=== PATIENT | male | born 1945 | race Caucasian/White ===

== ENCOUNTER 2018-07-15 16:21 | Inpatient (IN) | payer OTHER ==
[~2018-07-15] VITALS: Ht 182.9 cm; Wt 92.8 kg
[2018-07-15] MEDS ORDERED: METOPROLOL TARTRATE 1MG/1ML-5ML VIAL IV ONE ×2 (16:22→16:30)
[2018-07-15] MEDS ORDERED: AMIODARONE HCL 150 MG in D5W 5% 100 ML IV ONE (16:30)
[2018-07-15] MEDS ORDERED: METOPROLOL SUCCINATE XL 50 MG TAB PO ONE (16:30)
[2018-07-15] MEDS ORDERED: AMIODARONE HCL 900 MG in DEXTROSE 500 ML IV SCH ×3 (16:37→22:37)
[2018-07-15 16:51] LABS: Basophils # (auto) 0.1 uL; Basophils % (auto) 0.7 % (0.0-2.0); Eosinophils # (auto) 0.1 uL; Eosinophils % (auto) 0.9 % (0.0-7.0); Hematocrit 46.6 % (41.0-53.0); Hemoglobin 15.4 g/dL (13.5-17.5); Lymphocytes # (auto) 1.8 uL; Lymphocytes % (auto) 20.8 % (10.0-50.0); Mean Corpuscular Hemoglobin 30.6 pg (28.0-32.0); Mean Corpuscular Hgb Conc. 33.1 g/dL (32.0-36.0); Mean Corpuscular Volume 92.4 fL (80.0-100.0); Monocytes # (auto) 0.5 uL; Monocytes % (auto) 6.1 % (0.0-12.0); Neutrophils # (auto) 6.1 uL; Neutrophils % (auto) 71.5 % (37.0-80.0); Nucleated Red Blood Cells % 0.1 %; Platelet Count (auto) 208 10^3/uL (140-450); Red Blood Cells 5.04 10^6/uL (4.5-5.90); Red Cell Distribution Width 15.2 % (11.8-14.3); White Blood Cell 8.5 10^3/uL (4.4-10.8)
[2018-07-15] MEDS ORDERED: ONDANSETRON HCL 4 MG/2 ML VIAL IV ONE (17:00)
[2018-07-15] MEDS ORDERED: FUROSEMIDE 40 MG/4 ML VIAL IV ONE (17:00)
[2018-07-15] MEDS ORDERED: MORPHINE SULF INJ 2 MG/ML SYRINGE 1ML IV ONE (17:00)
[2018-07-15] MEDS ORDERED: FUROSEMIDE 40 MG/4 ML VIAL ONE (17:02)
[2018-07-15 17:07] LABS: INR 1.07 (0.9-1.15); Partial Thromboplastin Time 26.6 sec (23.78-33.04); Prothrombin Time 11.4 sec (9.27-12.13)
[2018-07-15 17:13] LABS: Albumin 3.3 g/dL (3.4-5.0); BUN/Creatinine Ratio 12.4; Calcium 8.3 mg/dL (8.5-10.1); Magnesium 2.2 mg/dL (1.6-2.6); Potassium 4.5 mmol/L (3.5-5.1)
[2018-07-15 17:18] LABS: Bilirubin, Total 1.6 mg/dL (0.2-1.0); Total Protein 6.8 g/dL (6.4-8.2)
[2018-07-15] MEDS: FUROSEMIDE 20 MG/2 ML VIAL IV SCH (18:50)
[2018-07-15] MEDS ORDERED: ASPirin 81 mg TAB PO ONE (19:15)
[2018-07-15] MEDS: NITROGLYCERIN 2% OINT 1GM PKG TD SCH (20:06)
[2018-07-15 20:38] LABS: Urine Bacteria NONE SEEN /hpf (None Seen); Urine Blood Negative /uL (Negative); Urine Specific Gravity 1.014 (1.001-1.035); Urine WBC 3 /hpf (0 - 3)
[2018-07-15] MEDS ORDERED: ASPirin 81 mg TAB PO SCH (22:00)
[2018-07-15] MEDS: POTASSIUM CHL 10 Meq TABLET PO SCH (22:29)
[2018-07-16] MEDS ORDERED: MORPHINE SULF INJ 2 MG/ML SYRINGE 1ML IV PRN
[2018-07-16] MEDS ORDERED: MORPHINE SULF INJ 2 MG/ML SYRINGE 1ML IM SCH
[2018-07-16] MEDS ORDERED: NTG 0.1MG/HR TOPICAL PATCH TD SCH
[2018-07-16] MEDS: AMIODARONE HCL 900 MG in DEXTROSE 500 ML IV SCH ×2 (01:00→16:45)
[2018-07-16] MEDS: NITROGLYCERIN 2% OINT 1GM PKG TD SCH ×4 (01:10→17:36)
[2018-07-16 01:52] VITALS: BP 122/85
[2018-07-16] MEDS ORDERED: FURO40TA4 PO (02:16)
[2018-07-16] MEDS ORDERED: POTA10TA51 PO (02:16)
[2018-07-16 04:00] VITALS: BP 122/78
[2018-07-16] MEDS: FUROSEMIDE 20 MG/2 ML VIAL IV SCH (05:22)
[2018-07-16 08:00] VITALS: BP 117/80
[2018-07-16] MEDS: POTASSIUM CHL 10 Meq TABLET PO SCH (10:00)
[2018-07-16] MEDS: ASPirin 81 mg TAB PO SCH (10:00)
[2018-07-16 10:07] LABS: Basophils # (auto) 0.1 uL; Basophils % (auto) 0.7 % (0.0-2.0); Eosinophils # (auto) 0 uL; Eosinophils % (auto) 0.1 % (0.0-7.0); Hematocrit 47.2 % (41.0-53.0); Hemoglobin 15.4 g/dL (13.5-17.5); Lymphocytes # (auto) 1.7 uL; Lymphocytes % (auto) 12.7 % (10.0-50.0); Mean Corpuscular Hemoglobin 29.9 pg (28.0-32.0); Mean Corpuscular Hgb Conc. 32.6 g/dL (32.0-36.0); Mean Corpuscular Volume 91.6 fL (80.0-100.0); Monocytes # (auto) 1.2 uL; Monocytes % (auto) 8.8 % (0.0-12.0); Neutrophils # (auto) 10.2 uL; Neutrophils % (auto) 77.7 % (37.0-80.0); Nucleated Red Blood Cells % 0.1 %; Platelet Count (auto) 201 10^3/uL (140-450); Red Blood Cells 5.15 10^6/uL (4.5-5.90); Red Cell Distribution Width 15.1 % (11.8-14.3); White Blood Cell 13.1 10^3/uL (4.4-10.8)
[2018-07-16] MEDS ORDERED: SOD CHL 0.45% 500 ML IV ONE (10:15)
[2018-07-16 10:48] LABS: Albumin 3.5 g/dL (3.4-5.0); BUN/Creatinine Ratio 10.2; Bilirubin, Total 2.9 mg/dL (0.2-1.0); Calcium 8.3 mg/dL (8.5-10.1); Total Protein 7.1 g/dL (6.4-8.2)
[2018-07-16 10:51] LABS: Potassium 5.8 mmol/L (3.5-5.1)
[2018-07-16 12:00] VITALS: BP 118/76
[2018-07-16] MEDS: HEPARIN SODIUM (PORCINE) 5000 UNITS/ML 1ML VIAL SC SCH ×2 (12:15→22:00)
[2018-07-16] MEDS ORDERED: InsuLIN REG 1unit/0.01ml Soln (100units/ml) IV ONE (12:30)
[2018-07-16] MEDS ORDERED: DEXTROSE (50%) 50ML SYRG IV ONE (12:30)
[2018-07-16] MEDS ORDERED: CALCIUM GLUC 4.65meq/50ml D5AE 50 ML IV ONE (12:30)
[2018-07-16] MEDS ORDERED: HEPARIN SODIUM (PORCINE) 5000 UNITS/ML 1ML VIAL ONE (12:43)
[2018-07-16 12:51] LABS: Creatinine, Urine 170 mg/dL (30.0-125.0)
[2018-07-16 16:00] VITALS: BP 120/83
[2018-07-16 18:16] LABS: Albumin 3.4 g/dL (3.4-5.0); BUN/Creatinine Ratio 11.6; Bilirubin, Total 3.1 mg/dL (0.2-1.0); Calcium 8.3 mg/dL (8.5-10.1); Potassium 5.4 mmol/L (3.5-5.1)
[2018-07-16 20:16] VITALS: BP 128/86
[2018-07-16] MEDS: ATORVASTATIN 20 MG TAB PO SCH (22:00)
[2018-07-16 22:44] LABS: Sodium Urine 21 mmol/L (40-220)
[2018-07-17] VITALS: BP_SYST 123; BP_SYST 126; BP_DIAS 73; BP_DIAS 87
[2018-07-17 04:00] VITALS: BP 131/84
[2018-07-17 05:51] LABS: Basophils # (auto) 0 uL; Basophils % (auto) 0.3 % (0.0-2.0); Eosinophils # (auto) 0 uL; Eosinophils % (auto) 0.1 % (0.0-7.0); Hematocrit 46.8 % (41.0-53.0); Hemoglobin 15.8 g/dL (13.5-17.5); Lymphocytes # (auto) 2.4 uL; Lymphocytes % (auto) 18.2 % (10.0-50.0); Mean Corpuscular Hgb Conc. 33.8 g/dL (32.0-36.0); Mean Corpuscular Volume 91.7 fL (80.0-100.0); Monocytes # (auto) 1.2 uL; Neutrophils # (auto) 9.5 uL; Neutrophils % (auto) 72.4 % (37.0-80.0); Nucleated Red Blood Cells % 0.2 %; Platelet Count (auto) 158 10^3/uL (140-450); Red Blood Cells 5.11 10^6/uL (4.5-5.90); White Blood Cell 13.1 10^3/uL (4.4-10.8)
[2018-07-17] MEDS: NITROGLYCERIN 2% OINT 1GM PKG TD SCH ×3 (06:03→14:02)
[2018-07-17 06:20] LABS: Albumin 3.5 g/dL (3.4-5.0); BUN/Creatinine Ratio 15.4; Bilirubin, Total 2.5 mg/dL (0.2-1.0); Calcium 8.5 mg/dL (8.5-10.1); Potassium 4.9 mmol/L (3.5-5.1); Total Protein 6.9 g/dL (6.4-8.2)
[2018-07-17 11:50] VITALS: BP 113/78
[2018-07-17] MEDS: ASPirin 81 mg TAB PO SCH (12:55)
[2018-07-17] MEDS: HEPARIN SODIUM (PORCINE) 5000 UNITS/ML 1ML VIAL SC SCH ×2 (14:10→21:31)
[2018-07-17 15:50] VITALS: BP 125/81
[2018-07-17] MEDS ORDERED: HYDROcodone-ACET 5/325MG TAB PO PRN (17:45)
[2018-07-17 19:50] VITALS: BP 136/81
[2018-07-17] MEDS: AMIODARONE HCL 900 MG in DEXTROSE 500 ML IV SCH (21:30)
[2018-07-17] MEDS: ATORVASTATIN 20 MG TAB PO SCH (21:31)
[2018-07-18] VITALS: BP 127/77
[2018-07-18 04:00] VITALS: BP 129/77
[2018-07-18] MEDS: NITROGLYCERIN 2% OINT 1GM PKG TD SCH ×4 (06:00→18:00)
[2018-07-18 06:15] LABS: Albumin 3.2 g/dL (3.4-5.0); BUN/Creatinine Ratio 19.4; Bilirubin, Total 2.4 mg/dL (0.2-1.0); Calcium 8.3 mg/dL (8.5-10.1); Potassium 4.4 mmol/L (3.5-5.1); Total Protein 6.5 g/dL (6.4-8.2)
[2018-07-18 06:17] LABS: Basophils # (auto) 0 uL; Basophils % (auto) 0.4 % (0.0-2.0); Eosinophils # (auto) 0 uL; Eosinophils % (auto) 0.2 % (0.0-7.0); Hematocrit 44.9 % (41.0-53.0); Lymphocytes # (auto) 1.5 uL; Mean Corpuscular Hemoglobin 30.5 pg (28.0-32.0); Mean Corpuscular Hgb Conc. 33.4 g/dL (32.0-36.0); Mean Corpuscular Volume 91.4 fL (80.0-100.0); Monocytes # (auto) 0.9 uL; Monocytes % (auto) 7.9 % (0.0-12.0); Neutrophils # (auto) 9.3 uL; Neutrophils % (auto) 78.5 % (37.0-80.0); Nucleated Red Blood Cells % 0.2 %; Platelet Count (auto) 147 10^3/uL (140-450); Red Blood Cells 4.91 10^6/uL (4.5-5.90); White Blood Cell 11.8 10^3/uL (4.4-10.8)
[2018-07-18] MEDS: ASPirin 81 mg TAB PO SCH (10:05)
[2018-07-18] MEDS: HEPARIN SODIUM (PORCINE) 5000 UNITS/ML 1ML VIAL SC SCH ×2 (10:08→21:56)
[2018-07-18] MEDS ORDERED: FUROSEMIDE 40 MG/4 ML VIAL IV ONE (11:00)
[2018-07-18 11:56] VITALS: BP 125/74
[2018-07-18] MEDS: AMIODARONE HCL 200 MG TAB PO SCH ×2 (12:25→21:57)
[2018-07-18] MEDS: METOPROLOL SUCCINATE XL 50 MG TAB PO SCH (12:26)
[2018-07-18] MEDS: IPRATROPIUM BROM 0.5 MG/2.5ML INH SOL NEB SCH ×3 (14:43→22:47)
[2018-07-18] MEDS: ALBUTEROL SULF 2.5 MG/0.5ML(0.5%) NEB SOLN NEB SCH ×3 (14:43→22:47)
[2018-07-18 15:07] VITALS: BP 125/74
[2018-07-18 15:50] VITALS: BP 119/61
[2018-07-18] MEDS: BUDESONIDE (INHALATION) 0.5 MG/2 ML NEB NEB SCH (18:33)
[2018-07-18] MEDS: ATORVASTATIN 20 MG TAB PO SCH (21:37)
[2018-07-18 22:00] VITALS: BP 140/74
[2018-07-18] MEDS ORDERED: ACETYLCYSTEINE ORAL for CIN 20%(200MG/ML) 4ML PO SCH (22:00)
[2018-07-18] MEDS ORDERED: ACETYLCYSTEINE 20%(200MG/ML) SOL 4ML ONE (22:23)
[2018-07-19] MEDS: NITROGLYCERIN 2% OINT 1GM PKG TD SCH ×2 (00:26→06:12)
[2018-07-19] MEDS: ALBUTEROL SULF 2.5 MG/0.5ML(0.5%) NEB SOLN NEB SCH ×6 (02:09→21:47)
[2018-07-19] MEDS: IPRATROPIUM BROM 0.5 MG/2.5ML INH SOL NEB SCH ×6 (02:09→21:47)
[2018-07-19 05:01] VITALS: BP 134/71
[2018-07-19 05:25] LABS: Basophils # (auto) 0 uL; Basophils % (auto) 0.5 % (0.0-2.0); Eosinophils # (auto) 0 uL; Eosinophils % (auto) 0.4 % (0.0-7.0); Hematocrit 44.1 % (41.0-53.0); Hemoglobin 14.9 g/dL (13.5-17.5); Lymphocytes # (auto) 1.3 uL; Lymphocytes % (auto) 14.1 % (10.0-50.0); Mean Corpuscular Hemoglobin 30.8 pg (28.0-32.0); Mean Corpuscular Hgb Conc. 33.8 g/dL (32.0-36.0); Mean Corpuscular Volume 91.2 fL (80.0-100.0); Monocytes # (auto) 0.7 uL; Monocytes % (auto) 7.9 % (0.0-12.0); Neutrophils # (auto) 6.9 uL; Neutrophils % (auto) 77.1 % (37.0-80.0); Nucleated Red Blood Cells % 0.2 %; Platelet Count (auto) 146 10^3/uL (140-450); Red Blood Cells 4.84 10^6/uL (4.5-5.90)
[2018-07-19 05:38] LABS: INR 1.21 (0.9-1.15); Partial Thromboplastin Time 25.3 sec (23.78-33.04); Prothrombin Time 12.8 sec (9.27-12.13)
[2018-07-19 05:45] LABS: BUN/Creatinine Ratio 20.3; Calcium 8.3 mg/dL (8.5-10.1); Potassium 4.2 mmol/L (3.5-5.1)
[2018-07-19 05:47] LABS: Bilirubin, Total 2.1 mg/dL (0.2-1.0); Total Protein 6.2 g/dL (6.4-8.2)
[2018-07-19 08:00] VITALS: BP 131/75
[2018-07-19] MEDS ORDERED: ADENOSINE 79 MG in GIVE UN-DILUTED 0 ML IV ONE (09:00)
[2018-07-19] MEDS: HEPARIN SODIUM (PORCINE) 5000 UNITS/ML 1ML VIAL SC SCH (10:00)
[2018-07-19] MEDS: BUDESONIDE (INHALATION) 0.5 MG/2 ML NEB NEB SCH ×2 (10:16→17:55)
[2018-07-19] MEDS: FUROSEMIDE 40 MG/4 ML VIAL IV SCH (10:36)
[2018-07-19] MEDS: AMIODARONE HCL 200 MG TAB PO SCH ×2 (10:36→21:35)
[2018-07-19] MEDS: ASPirin 81 mg TAB PO SCH (10:36)
[2018-07-19] MEDS: METOPROLOL SUCCINATE XL 50 MG TAB PO SCH (10:40)
[2018-07-19] MEDS ORDERED: SODIUM CHLORIDE 0.9% 1,000 ML IV SCH (11:30)
[2018-07-19 12:00] VITALS: BP 143/77
[2018-07-19] MEDS: ACETYLCYSTEINE ORAL for CIN 20%(200MG/ML) 4ML PO SCH ×2 (12:15→21:36)
[2018-07-19] MEDS ORDERED: LIDOCAINE 2% (LOCAL ANESTH.) PF 5ml SDV ONE (12:24)
[2018-07-19] MEDS ORDERED: IOHEXOL 350 MG/ML 100ML IJ ONE (12:25)
[2018-07-19] MEDS ORDERED: ANGIOMAX 250 MG VIAL IV ONE ×2 (13:21→14:27)
[2018-07-19] MEDS ORDERED: fentaNYL CITRATE 100 MCG/2 ML VL ONE (13:22)
[2018-07-19] MEDS ORDERED: SODIUM CHL 0.9% 50 ML ONE ×2 (13:22→14:27)
[2018-07-19] MEDS ORDERED: HEPARIN SODIUM (PORCINE) 5000 UNITS/ML 1ML VIAL ONE (13:22)
[2018-07-19] MEDS ORDERED: VERAPAMIL 2.5MG/ML INJ 2ML VIAL IV ONE ×2 (13:22→13:48)
[2018-07-19] MEDS ORDERED: MIDAZOLAM HCL 1MG/1ML-2 ML VIAL ONE (13:22)
[2018-07-19] MEDS ORDERED: ATROPINE SULF 1 MG/10ml SYR ONE (13:53)
[2018-07-19] MEDS ORDERED: EPINEPHrine HCL 1 MG/10 ML SYRG ONE (13:53)
[2018-07-19] MEDS ORDERED: IODIXANOL 320MG/ML 100ML BTL IV ONE (13:54)
[2018-07-19] MEDS ORDERED: TICAGRELOR 90 MG TAB ONE (14:34)
[2018-07-19] MEDS ORDERED: ASPirin 325 MG TAB ONE (14:34)
[2018-07-19] MEDS: SODIUM CHLORIDE 0.9% 1,000 ML IV SCH (15:45)
[2018-07-19 16:00] VITALS: BP 140/83
[2018-07-19] MEDS: TICAGRELOR 90 MG TAB PO SCH (21:34)
[2018-07-19] MEDS: ATORVASTATIN 20 MG TAB PO SCH (21:35)
[2018-07-19 22:00] VITALS: BP 141/75
[2018-07-20] MEDS: SODIUM CHLORIDE 0.9% 1,000 ML IV SCH (01:45)
[2018-07-20] MEDS: IPRATROPIUM BROM 0.5 MG/2.5ML INH SOL NEB SCH ×6 (02:00→22:00)
[2018-07-20] MEDS: ALBUTEROL SULF 2.5 MG/0.5ML(0.5%) NEB SOLN NEB SCH ×6 (02:00→22:00)
[2018-07-20 05:00] VITALS: BP 153/77
[2018-07-20 08:30] VITALS: BP 154/80
[2018-07-20] MEDS ORDERED: AMI200T PO (09:32)
[2018-07-20] MEDS ORDERED: ASPI81CH43 PO (09:32)
[2018-07-20] MEDS ORDERED: MET5XLT PO (09:32)
[2018-07-20] MEDS ORDERED: ATOR20TA50 PO (09:32)
[2018-07-20] MEDS ORDERED: CLOP75TA28 PO (09:32)
[2018-07-20] MEDS ORDERED: FURO40TA PO (09:38)
[2018-07-20 09:45] LABS: BUN/Creatinine Ratio 14.4; Calcium 8.4 mg/dL (8.5-10.1); Potassium 3.8 mmol/L (3.5-5.1)
[2018-07-20] MEDS: BUDESONIDE (INHALATION) 0.5 MG/2 ML NEB NEB SCH ×2 (10:48→22:00)
[2018-07-20] MEDS: AMIODARONE HCL 200 MG TAB PO SCH ×2 (11:01→21:52)
[2018-07-20] MEDS: ASPirin 81 mg TAB PO SCH (11:02)
[2018-07-20] MEDS: TICAGRELOR 90 MG TAB PO SCH ×2 (11:02→21:51)
[2018-07-20] MEDS: METOPROLOL SUCCINATE XL 50 MG TAB PO SCH (11:02)
[2018-07-20] MEDS: ACETYLCYSTEINE ORAL for CIN 20%(200MG/ML) 4ML PO SCH (11:03)
[2018-07-20] MEDS: FUROSEMIDE 40 MG/4 ML VIAL IV SCH (11:03)
[2018-07-20 13:00] VITALS: BP 151/97
[2018-07-20] MEDS ORDERED: LACTULOSE 20Gm/30ML SOLN PO PRN (14:15)
[2018-07-20] MEDS ORDERED: LISINOPRIL 20 MG TAB PO ONE (14:15)
[2018-07-20] MEDS ORDERED: ALB5IS NEB (15:31)
[2018-07-20] MEDS ORDERED: IPR002IS NEB (15:31)
[2018-07-20] MEDS ORDERED: LACT10SO3 PO (15:31)
[2018-07-20 16:57] VITALS: BP 142/78
[2018-07-20] MEDS: hydrALAZINE HCL 25 MG TAB PO SCH (21:51)
[2018-07-20] MEDS: ATORVASTATIN 20 MG TAB PO SCH (21:52)
[2018-07-20 22:00] VITALS: BP 138/71
[2018-07-21] MEDS: IPRATROPIUM BROM 0.5 MG/2.5ML INH SOL NEB SCH ×3 (02:00→10:18)
[2018-07-21] MEDS: ALBUTEROL SULF 2.5 MG/0.5ML(0.5%) NEB SOLN NEB SCH ×3 (02:00→10:18)
[2018-07-21 05:23] VITALS: BP 148/87
[2018-07-21] MEDS: BUDESONIDE (INHALATION) 0.5 MG/2 ML NEB NEB SCH (05:41)
[2018-07-21] MEDS: hydrALAZINE HCL 25 MG TAB PO SCH (06:07)
[2018-07-21 08:27] VITALS: BP 158/80
[2018-07-21] MEDS: TICAGRELOR 90 MG TAB PO SCH (10:00)
[2018-07-21] MEDS: FUROSEMIDE 40 MG/4 ML VIAL IV SCH (10:00)
[2018-07-21] MEDS: METOPROLOL SUCCINATE XL 50 MG TAB PO SCH (10:00)
[2018-07-21] MEDS: AMIODARONE HCL 200 MG TAB PO SCH (10:00)
[2018-07-21] MEDS: ASPirin 81 mg TAB PO SCH (10:00)
[2018-07-21] MEDS ORDERED: LISINOPRIL 20 MG TAB PO SCH (10:00)
== END 2018-07-21 13:51 | DRG 246 ==
LOC: EDUNIT# 16:21 → EDBD 16:21 → ER 16:28 → TELE 16:29 → DOU IN ICU 07-16 01:04 → TELE-CENTR 07-18 19:30
PROVIDERS: ADMIT Internal Medicine; ATTEND Internal Medicine
PROC: 027034Z Dilation of Coronary Artery, One Artery with Drug-eluting Intraluminal Device, Percutaneous Approach (ICD-10-PCS; principal; 2018-07-19)
PROC: 4A023N7 Measurement of Cardiac Sampling and Pressure, Left Heart, Percutaneous Approach (ICD-10-PCS; 2018-07-19)
PROC: B2111ZZ Fluoroscopy of Multiple Coronary Arteries using Low Osmolar Contrast (ICD-10-PCS; 2018-07-19)
DX: I13.0 Hypertensive heart and chronic kidney disease with heart failure and stage 1 through stage 4 chronic kidney disease, or unspecified chronic kidney disease (principal); N17.0 Acute kidney failure with tubular necrosis; I50.23 Acute on chronic systolic (congestive) heart failure; I47.1 Supraventricular tachycardia; E87.5 Hyperkalemia; F17.210 Nicotine dependence, cigarettes, uncomplicated; I25.10 Atherosclerotic heart disease of native coronary artery without angina pectoris; I44.0 Atrioventricular block, first degree; I87.8 Other specified disorders of veins; J44.9 Chronic obstructive pulmonary disease, unspecified; N18.9 Chronic kidney disease, unspecified; M19.90 Unspecified osteoarthritis, unspecified site; I95.9 Hypotension, unspecified; Z79.899 Other long term (current) drug therapy; Z80.8 Family history of malignant neoplasm of other organs or systems; Z71.6 Tobacco abuse counseling; Z91.14 Patient's other noncompliance with medication regimen; Z95.5 Presence of coronary angioplasty implant and graft
CPT/HCPCS: 36415; 51702; 71045; 80048; 80053; 81001; 82570; 83735; 83880; 84100; 84300; 84484; 85025; 85610; 85730; 87081; 92928; 93005; 93306; 93458; 94640; 96374; 99152; 99153; 99291; A6257; C1874; J0153; J0610; J1815; J2001; J2250; J2405; J7060; Q9967